=== PATIENT | female | born 1955 | race Caucasian/White ===

== ENCOUNTER 2020-03-01 03:37 | Emergency (ER) | payer OTHER ==
[2020-03-01] MEDS ORDERED: SUMATRIPTAN SUCCINATE 6 MG/VIAL 0.5ML SQ ONE (05:18)
== END 2020-03-01 10:02 | disposition short-term general hospital (02) ==
LOC: EDH 03:37
DX: R45.851 Suicidal ideations (principal); F32.9 Major depressive disorder, single episode, unspecified; F41.9 Anxiety disorder, unspecified; G43.909 Migraine, unspecified, not intractable, without status migrainosus; E03.9 Hypothyroidism, unspecified
CPT/HCPCS: 36415; 80053; 80305; 81001; 85025; 87077; 87088; 87186; 96372; 99285; G0481; J3030